=== PATIENT | female | born 1990 | race Caucasian/White ===

== ENCOUNTER 2017-10-25 14:53 | Emergency (ER) | payer SELFPAY ==
[2017-10-25 14:54] VITALS: BP 122/71; PULSE 78; RESP 16; TEMP 36.8; O2SAT 98; BMI 36.9
[2017-10-25] MEDS: Lidocaine/Epi/Tetracaine 50 ML 1 APPLIC TOPICAL (15:35)
--- NOTE | 2017-10-25 15:37 | ED.VISSUMM ---
- ER Visit Summary Date of Service: 10/25/17 Chief Complaint: Left lower lip swelling after a piercing History of Present Illness: The patient is a 26 F states that she had her lip pierced on both sides about a month ago. Today she woke up in the left side was painful and swollen. Denies any discharge or fever. She has other piercings that have never been infected before. She denies other complaints. Physical Examination: Well-appearing young female. Vital signs are stable afebrile. H EENT exam she is a piercing through her nose 2 piercings below her lower lip the right one is out the left lip is swollen and tender. There is no abscess at this time there is no facial cellulitis. It is tender to touch. The piercing is still in place it is difficult to remove due to the amount of swelling but we will attempt to do so. Neck nontender no lymphadenopathy. Lungs clear to auscultation bilaterally. Heart regular rhythm no murmur. Rate about 110. Abdomen soft nontender. Otherwise exam unremarkable. Test Results: None Emergency Department Course and Treatment: Removed piercing. Patient has a reported penicillin allergy as a child. She will be started on clindamycin. Patient had to leave the piercing out. And instructed to follow-up with Dr. Manpreet Benitez. Treatment Plan: Clindamycin p.o. and follow-up. Disposition: Discharge Impression: Acute left lower lip swelling and infection of the soft tissues status post piercing This note was generated with [employer] dictation software. It may contain incorrect words, spelling, and punctuation that were not noted in review of the chart prior to signing ED Disposition - Plan for ED Patient: Chief Complaint: Edema Referrals: Care Physician,No Primary [Primary Care Provider] -
--- NOTE | 2017-10-25 15:40 | ED.DEP ---
ED Disposition - Plan for ED Patient: Disposition: Home or Assisted Living Chief Complaint: Edema Prescriptions: Clindamycin [Cleocin] 300 mg PO 4X/DAY 7 Days cap Referrals: Care Physician,No Primary [Primary Care Provider] - Manpreet Benitez MD [STAFF PHYSICIAN] - 3-5 Days if not improving Additional Instructions: Ice to lip to decrease pain and swelling. Tylenol Motrin for pain. Remove and keep the piercing of the lip until infection is completely resolved. I would consider leaving it out altogether. Clindamycin antibiotic 4 times a day for 1 week. Return if swelling is getting a lot worse or you feel significantly worse.
--- NOTE | 2017-10-25 15:49 | ED.RN ---
LIP PIERCING REMOVED WITH ASSISTANCE OF ANOTHER RN. PIERCING GRASPED WITH FORCEPS ON BOTH SIDES, JEWEL UNSCREWED, REMOVED WITHOUT DIFFICULTY, PT TOLERATED WELL.
== END 2017-10-25 15:52 | disposition home or self-care (01) ==
PROVIDERS: Emergency Provider Emergency Medicine
DX: L08.89 Other specified local infections of the skin and subcutaneous tissue (principal); Z88.0 Allergy status to penicillin
CPT/HCPCS: 99282